=== PATIENT | female | born 1945 | race Caucasian/White ===

== ENCOUNTER 2016-09-16 09:30 | Outpatient (CLI) | payer MEDICARE ==
[2016-09-16 09:57] LABS: Prothrombin Time 23.2 SEC (12.0-14.7)
== END 2016-09-16 09:31 | disposition home or self-care (01) ==
LOC: BURLAB 09:30
PROVIDERS: ATTEND Internal Medicine Cardiovascular Disease
DX: Z51.81 Encounter for therapeutic drug level monitoring (principal); I82.409 Acute embolism and thrombosis of unspecified deep veins of unspecified lower extremity; Z79.01 Long term (current) use of anticoagulants
CPT/HCPCS: 36415; 85610

== ENCOUNTER 2016-10-18 10:01 | Outpatient (CLI) | payer MEDICARE ==
[2016-10-18 10:25] LABS: Prothrombin Time 19.8 SEC (12.0-14.7)
== END 2016-10-18 10:02 | disposition home or self-care (01) ==
LOC: BURLAB 10:01
PROVIDERS: ATTEND Internal Medicine Cardiovascular Disease
DX: I80.209 Phlebitis and thrombophlebitis of unspecified deep vessels of unspecified lower extremity (principal)
CPT/HCPCS: 36415; 85610

== ENCOUNTER 2016-10-26 09:08 | Outpatient (CLI) | payer MEDICARE ==
[2016-10-26 09:28] LABS: Prothrombin Time 28.3 SEC (12.0-14.7)
== END 2016-10-26 09:09 | disposition home or self-care (01) ==
LOC: BURLAB 09:08
PROVIDERS: ATTEND Internal Medicine Cardiovascular Disease
DX: I80.209 Phlebitis and thrombophlebitis of unspecified deep vessels of unspecified lower extremity (principal)
CPT/HCPCS: 36415; 85610

== ENCOUNTER 2016-11-02 12:28 | Outpatient (CLI) | payer MEDICARE ==
[2016-11-02 13:00] LABS: Prothrombin Time 26.8 SEC (12.0-14.7)
== END 2016-11-02 12:29 | disposition home or self-care (01) ==
LOC: BURLAB 12:28
PROVIDERS: ATTEND Internal Medicine Cardiovascular Disease
DX: I80.209 Phlebitis and thrombophlebitis of unspecified deep vessels of unspecified lower extremity (principal)
CPT/HCPCS: 36415; 85610

== ENCOUNTER 2016-11-09 11:07 | Outpatient (CLI) | payer MEDICARE ==
[2016-11-09 11:25] LABS: Prothrombin Time 26.2 SEC (12.0-14.7)
== END 2016-11-09 11:08 | disposition home or self-care (01) ==
LOC: BURLAB 11:07
PROVIDERS: ATTEND Internal Medicine Cardiovascular Disease
DX: I80.209 Phlebitis and thrombophlebitis of unspecified deep vessels of unspecified lower extremity (principal)
CPT/HCPCS: 36415; 85610

== ENCOUNTER 2016-11-16 12:41 | Outpatient (CLI) | payer MEDICARE ==
[2016-11-16 13:09] LABS: Prothrombin Time 25.6 SEC (12.0-14.7)
== END 2016-11-16 12:42 | disposition home or self-care (01) ==
LOC: BURLAB 12:41
PROVIDERS: ATTEND Internal Medicine Cardiovascular Disease
DX: I80.209 Phlebitis and thrombophlebitis of unspecified deep vessels of unspecified lower extremity (principal)
CPT/HCPCS: 36415; 85610

== ENCOUNTER 2016-11-23 09:37 | Outpatient (CLI) | payer MEDICARE ==
[2016-11-23 10:14] LABS: INR-International Normal Ratio 3.3; Prothrombin Time 32.9 SEC (12.0-14.7)
== END 2016-11-23 09:38 | disposition home or self-care (01) ==
LOC: BURLAB 09:37
PROVIDERS: ATTEND Internal Medicine Cardiovascular Disease
DX: I80.209 Phlebitis and thrombophlebitis of unspecified deep vessels of unspecified lower extremity (principal)
CPT/HCPCS: 36415; 85610

== ENCOUNTER 2016-11-29 08:28 | Outpatient (CLI) | payer MEDICARE ==
[2016-11-29 08:48] LABS: INR-International Normal Ratio 1.7; Prothrombin Time 19.8 SEC (12.0-14.7)
== END 2016-11-29 08:29 | disposition home or self-care (01) ==
LOC: BURLAB 08:28
PROVIDERS: ATTEND Internal Medicine Cardiovascular Disease
DX: I80.209 Phlebitis and thrombophlebitis of unspecified deep vessels of unspecified lower extremity (principal)
CPT/HCPCS: 36415; 85610

== ENCOUNTER 2016-12-06 09:12 | Outpatient (CLI) | payer MEDICARE ==
[2016-12-06 09:40] LABS: INR-International Normal Ratio 1.5; Prothrombin Time 18.6 SEC (12.0-14.7)
[2016-12-06 09:58] LABS: Hemoglobin 16.7 g/dL (12.0-16.0); Mean Corpuscular HGB CONC 33.6 g/dL (32.0-36.0); Mean Corpuscular Hemoglobin 31.1 pg (27.0-31.0); Mean Corpuscular Volume 92.6 fl (81.0-99.0); Mean Platelet Volume 10.2 fL (7.4-10.4); Platelet Count 161 thou/uL (130-400); RBC Distribution Width 13.2 % (11.5-14.5); Red Blood Cell (RBC) Count 5.39 mill/uL (4.20-5.40); White Blood Cell (WBC) Count 6.9 thou/uL (4.8-10.8)
[2016-12-06 10:27] LABS: ALT (SGPT) 34 U/L (0-55); AST (SGOT) 27 U/L (5-34); Albumin 3.9 g/dL (3.4-4.8); Alkaline Phosphatase 78 U/L (40-150); Anion Gap 15 mmol/L (10-20); BUN (Urea Nitrogen) 8 mg/dL (9.8-20.1); Bilirubin, Total 1.1 mg/dL (0.2-1.2); Calc. Creatinine Clearance 0 mL/min (70-130); Calcium 9.5 mg/dL (7.8-10.44); Carbon Dioxide 22 mmol/L (23-31); Chloride 109 mmol/L (98-107); Estimated GFR-MDRD 75; Globulin 3.1 g/dL (2.4-3.5); Glucose 96 mg/dL (80-115); Potassium 3.6 mmol/L (3.5-5.1); Sodium 142 mmol/L (136-145)
[2016-12-06 10:43] LABS: Free T4 (Free Thyroxine) 1.36 ng/dL (0.70-1.48); Thyroid Stimulating Hormone 1.1876 uIU/mL (0.35-4.94)
== END 2016-12-06 09:13 | disposition home or self-care (01) ==
LOC: BURLAB 09:12
PROVIDERS: ATTEND Physician Assistant Medical
DX: R19.7 Diarrhea, unspecified (principal); I80.209 Phlebitis and thrombophlebitis of unspecified deep vessels of unspecified lower extremity
CPT/HCPCS: 36415; 80053; 83516; 84439; 84443; 85027; 85610; 85652

== ENCOUNTER 2016-12-13 09:47 | Outpatient (CLI) | payer MEDICARE ==
[2016-12-13 12:09] LABS: INR-International Normal Ratio 2.2; Prothrombin Time 24.4 SEC (12.0-14.7)
== END 2016-12-13 09:48 | disposition home or self-care (01) ==
LOC: BURLAB 09:47
PROVIDERS: ATTEND Internal Medicine Cardiovascular Disease
DX: I80.209 Phlebitis and thrombophlebitis of unspecified deep vessels of unspecified lower extremity (principal)
CPT/HCPCS: 36415; 85610

== ENCOUNTER 2016-12-27 11:48 | Outpatient (CLI) | payer MEDICARE ==
[2016-12-27 12:05] LABS: INR-International Normal Ratio 1.8; Prothrombin Time 21.3 SEC (12.0-14.7)
== END 2016-12-27 11:49 | disposition home or self-care (01) ==
LOC: BURLAB 11:48
PROVIDERS: ATTEND Internal Medicine Cardiovascular Disease
DX: I80.209 Phlebitis and thrombophlebitis of unspecified deep vessels of unspecified lower extremity (principal)
CPT/HCPCS: 36415; 85610

== ENCOUNTER 2017-01-10 08:23 | Outpatient (CLI) | payer MEDICARE ==
[2017-01-10 08:46] LABS: INR-International Normal Ratio 1.9; Prothrombin Time 22.8 SEC (12.0-14.7)
== END 2017-01-10 08:24 | disposition home or self-care (01) ==
LOC: BURLAB 08:23
PROVIDERS: ATTEND Internal Medicine Cardiovascular Disease
DX: I80.209 Phlebitis and thrombophlebitis of unspecified deep vessels of unspecified lower extremity (principal); Z79.01 Long term (current) use of anticoagulants
CPT/HCPCS: 36415; 85610

== ENCOUNTER 2017-01-24 09:14 | Outpatient (CLI) | payer MEDICARE ==
[2017-01-24 09:42] LABS: Anion Gap 11 mmol/L (10-20); BUN (Urea Nitrogen) 14 mg/dL (9.8-20.1); Calc. Creatinine Clearance 0 mL/min (70-130); Calcium 9.4 mg/dL (7.8-10.44); Carbon Dioxide 24 mmol/L (23-31); Chloride 111 mmol/L (98-107); Estimated GFR-MDRD 70; Glucose 100 mg/dL (80-115); Potassium 4.1 mmol/L (3.5-5.1); Sodium 142 mmol/L (136-145)
== END 2017-01-24 09:15 | disposition home or self-care (01) ==
LOC: BURLAB 09:14
PROVIDERS: ATTEND Internal Medicine Cardiovascular Disease
DX: I10 Essential (primary) hypertension (principal)
CPT/HCPCS: 36415; 80048

== ENCOUNTER → 2017-05-06 | Outpatient (CLI) | payer MEDICARE | LOC: BURLAB 09:12 | PROVIDERS: ATTEND Family Medicine | DX: E03.9 Hypothyroidism, unspecified (principal); A09 Infectious gastroenteritis and colitis, unspecified | CPT/HCPCS: 36415; 84443 ==

== ENCOUNTER 2020-09-23 10:43 | Inpatient (IN) | payer MEDICARE ==
[2020-09-23 11:51] LABS: Hemoglobin 14.1 g/dL (12.0-16.0); Mean Corpuscular HGB CONC 33.5 g/dL (32.0-36.0); Mean Corpuscular Hemoglobin 31.2 pg (27.0-31.0); Mean Corpuscular Volume 93.3 fL (78.0-98.0); Mean Platelet Volume 10.1 fL (7.4-10.4); Platelet Count 120 thou/uL (130-400); RBC Distribution Width 12.3 % (11.5-14.5); White Blood Cell (WBC) Count 20.9 thou/uL (4.8-10.8)
[2020-09-23 12:07] LABS: Band 40 % (5-11); Lymphocytes 1 % (21-51); MDiff Complete? YES; Monocytes 3 % (0-10); Neutrophil 56 % (42-75); Vacuoles SLIGHT
[2020-09-23 12:10] LABS: ALT (SGPT) 20 U/L (8-55); AST (SGOT) 28 U/L (5-34); Alkaline Phosphatase 73 U/L (40-110); Anion Gap 16 mmol/L (10-20); BUN (Urea Nitrogen) 47 mg/dL (9.8-20.1); Bilirubin, Total 1.3 mg/dL (0.2-1.2); Calc. Creatinine Clearance 0 mL/min (70-130); Calcium 8.3 mg/dL (7.8-10.44); Carbon Dioxide 23 mmol/L (23-31); Chloride 100 mmol/L (98-107); Globulin 2.8 g/dL (2.4-3.5); Glucose 115 mg/dL (83-110); Potassium 3.2 mmol/L (3.5-5.1); Protein, Total 5.8 g/dL (6.0-8.3); Sodium 136 mmol/L (136-145)
[2020-09-23] MEDS ORDERED: Azithromycin 500 MG VIAL ONE (13:09)
[2020-09-23] MEDS ORDERED: cefTRIAXone\\ROCEPHIN 2 GM VIAL ONE ×2 (13:09→13:13)
[2020-09-23] MEDS ORDERED: Sodium Chloride 0.9% 100 ML ONE (13:09)
[2020-09-23 13:44] LABS: SARS-CoV-2 NAA Rapid Test Not Detected (NotDetected)
[2020-09-23 14:45] LABS: Lactic Acid 2.2 mmol/L (0.5-2.2)
[2020-09-23 16:29] VITALS: BMI 54.8
[2020-09-23] MEDS: Acetaminophen 325 MG TAB PO PRN (16:58)
[2020-09-23] MEDS: Sodium Chloride 0.9% 1,000 ML IV SCH (16:58)
--- NOTE | 2020-09-23 17:18 | RAD ---
PORTABLE CHEST: 09/23/20 Comparison is made with the 10/09/18 study. Hazy infiltrate is seen in the left base, most likely in the lingula. This is a new finding and likel y represents pneumonia. I do not appreciate infiltrates in the right lung at the moment, though subtl e ones might be missed. The lungs are slightly hyperexpanded. The heart is borderline in size but the re are no congestive findings. IMPRESSION: Hazy left basilar infiltrate. Pneumonia is presumed. Findings discussed with Dr. Lindquist at 1251 on 09/23/20. POS: HOME
[2020-09-23] MEDS ORDERED: Ondansetron ODT 4 MG TAB PO PRN (18:17)
[2020-09-23] MEDS ORDERED: Benzonatate 100 MG CAP PO PRN (18:17)
[2020-09-23] MEDS ORDERED: Loperamide HCl 2 MG CAP PO PRN (18:17)
[2020-09-23] MEDS ORDERED: Albuterol 200 PUFF (6.7GM INHALER) INH PRN (18:52)
[2020-09-23] MEDS ORDERED: Potassium Chloride 20 MEQ TAB PO SCH (21:00)
[2020-09-23] MEDS: Famotidine 20 MG TAB PO SCH (21:48)
[2020-09-23] MEDS ORDERED: Rivaroxaban 10 MG TAB PO SCH (22:00)
[2020-09-23] MEDS: Mometasone/Formoterol 60 PUFF AER INH SCH (22:01)
[2020-09-23] MEDS: traMADol HCl 50 MG TAB PO SCH (22:01)
[2020-09-23] MEDS: Nystatin Cream 15 GM TUBE TOP SCH (22:02)
--- NOTE | 2020-09-24 00:29 | HP ---
CHIEF COMPLAINT: Shortness of breath and diarrhea. HISTORY OF THE PRESENT ILLNESS: Mrs. Rodriguez is a 75-year-old female with a past medical history of asthma, hypertension, and PEs/DVTs, who was experiencing approximately 1 week of shortness of breath with a mild cough and diarrhea. She also had significant chills. She denies any fever. She denies any contact with COVID positive individuals. Her cough is minimally productive. She has not had any chest pain. She presented today as she felt she needed to be screened for COVID. Her COVID screen was negative, but she had significant leukocytosis with left shift, lactic acidosis, and acute renal insufficiency. She was given IV fluids in the emergency room and antibiotics and is already feeling much better than from her initial presentation. PAST MEDICAL HISTORY: 1. Obesity. 2. Hypertension. 3. Asthma. 4. Hypothyroidism. 5. PE/DVTs. SURGICAL HISTORY: 1. Hysterectomy. 2. Cholecystectomy. 3. Tubal ligation. 4. Cataracts. FAMILY HISTORY: Noncontributory. SOCIAL HISTORY: The patient denies tobacco. She has an occasional alcoholic beverage but does not drink daily. Denies any illicit drugs. She is and lives with her . Currently, she has children close by as well, staying with her. ALLERGIES: CODEINE CAUSES HIVES, AND LEVAQUIN. MEDICATIONS: 1. Albuterol nebulizer 0.083% nebulized q.4 hours p.r.n. 2. Hydrochlorothiazide 12.5 mg p.o. daily. 3. Tramadol 50 mg p.o. b.i.d. 4. Ventolin HFA two puffs inhaled q.6 hours p.r.n. 5. Tylenol Arthritis two p.o. daily. 6. Lisinopril 80 mg p.o. daily. 7. Levothyroxine 100 mcg p.o. daily. 8. Breo Ellipta one inhalation q.p.m. 9. Xarelto 20 mg p.o. daily. REVIEW OF SYSTEMS: GENERAL: The patient reports chills, malaise, and myalgias. Denies fever. HEENT: Denies vision changes, rhinorrhea, sore throat, ear pain. NECK: Denies pain or lymphadenopathy. CARDIOVASCULAR: Denies chest pain, palpitations, orthopnea, or PND. LYMPHATIC: Denies increased edema. RESPIRATORY: Positive cough, scant sputum. No wheezing or hemoptysis. Positive shortness of breath. GI: Positive diarrhea. No hematochezia or melena. Mild nausea without vomiting. No abdominal pain. HEMATOLOGIC: Denies bleeding. GENITOURINARY: Denies dysuria. PHYSICAL EXAMINATION: VITAL SIGNS: Temperature 98.2, pulse 80, respirations 24, O2 saturation 94% on 2 L. Blood pressure 111/56. GENERAL: Well-developed, overweight, female, alert and oriented x3. Pleasant, in no acute distress. HEENT: Normocephalic, atraumatic. Pupils equally round and reactive to light and accommodation, extraocular muscles intact, nares patent without discharge. Tongue protrudes on the midline. NECK: Supple without lymphadenopathy, JVD, or bruit. HEART: Regular rate and rhythm with 2/6 systolic ejection murmur, best heard in right upper sternal border. LUNGS: Clear to auscultation bilaterally. No crackles or wheezes. ABDOMEN: Positive bowel sounds in all four quadrants. Soft, nontender, and nondistended. No masses, guarding, or rebound tenderness. EXTREMITIES: No cyanosis or clubbing. 1+ nonpitting edema bilaterally to the lower extremities with venous stasis changes to left lower extremity greater than right without warmth. SKIN: Erythema in the labial region per nurse report. NEUROLOGIC: Cranial nerves 2 through 12 grossly intact. No focal deficits. LABORATORY/IMAGING DATA: White count [id number] with 56 polys, 40 bands, 1 lymphocyte, hemoglobin 14.1, hematocrit 42, platelet 120. Sodium 136, potassium 3.2, chloride 100, bicarb 23, BUN 47, creatinine 1.74, glucose 115, lactic acid 2.8, then 2.2, calcium 8.3, T bilirubin 1.3, AST 28, ALT 20, alkaline phosphatase 73, albumin 3. Serology, influenza A, B, and SARS-CoV-2 rapid RNA negative. Urine and blood culture pending. Chest x-ray shows hazy left basilar infiltrate, presumptive pneumonia. ASSESSMENT/PLAN: 1. Left lower lobe pneumonia, community-acquired. The patient was given Rocephin, Zithromax in emergency room. We will continue that. 2. Leukocytosis with bandemia. We will repeat a CBC in the a.m. 3. Lactic acidosis. This has resolved. We will continue IV fluids overnight. 4. Acute kidney injury. The patient has received IV fluids and will continue these overnight. We will recheck a BMP in the morning. 5. Diarrhea. We will give Imodium. We will get stool studies if persists. She is requesting advancing her diet from clear liquids to regular, so we will do that. 6. Hypertension. The patient will be continued on her home medications. 7. History of PE, DVT. Will prescribe home Xarelto. Recommend ambulating as tolerated. 8. Asthma. We will continue home medications. 9. Intertrigo of [place]. We will order nystatin ointment b.i.d. for 14 days and try to keep the area clean and dry. 10. Prophylaxis. The patient is already on oral anticoagulation and will ambulate. Will order famotidine 20 mg b.i.d. for GI prophylaxis. Full code. Job ID: [id number] MTDD
[2020-09-24] MEDS: Loperamide HCl 2 MG CAP PO PRN ×4 (01:33→19:50)
[2020-09-24] MEDS: Sodium Chloride 0.9% 1,000 ML IV SCH ×2 (02:35→11:48)
[2020-09-24 05:27] LABS: #Eosinphils 0.1 thou/uL (0.0-0.7); #Lymphocytes 0.9 thou/uL (1.20-3.40); #Monocytes 0.4 thou/uL (0.11-0.59); #Neutrophils 11.4 thou/uL (1.40-6.50); %Basophils 0.4 % (0.0-1.0); %Eosinophils 0.5 % (0.0-10.0); %Lymphocytes 7.3 % (21.0-51.0); %Monocytes 3.3 % (0.0-10.0); %Neutrophils 88.6 % (42.0-75.0); Hemoglobin 12.2 g/dL (12.0-16.0); Mean Corpuscular HGB CONC 33.7 g/dL (32.0-36.0); Mean Corpuscular Hemoglobin 31.5 pg (27.0-31.0); Mean Corpuscular Volume 93.5 fL (78.0-98.0); Mean Platelet Volume 10.2 fL (7.4-10.4); Platelet Count 106 thou/uL (130-400); RBC Distribution Width 12.5 % (11.5-14.5); Red Blood Cell (RBC) Count 3.87 mill/uL (4.20-5.40); White Blood Cell (WBC) Count 12.9 thou/uL (4.8-10.8)
[2020-09-24] MEDS: Levothyroxine Sodium 100 MCG TAB PO SCH (05:30)
[2020-09-24] MEDS: Acetaminophen 325 MG TAB PO PRN ×2 (05:39→13:13)
[2020-09-24 05:40] LABS: Anion Gap 13 mmol/L (10-20); BUN (Urea Nitrogen) 50 mg/dL (9.8-20.1); Calc. Creatinine Clearance 91 mL/min (70-130); Calcium 7.3 mg/dL (7.8-10.44); Carbon Dioxide 20 mmol/L (23-31); Chloride 107 mmol/L (98-107); Glucose 89 mg/dL (83-110); Potassium 3.1 mmol/L (3.5-5.1); Sodium 137 mmol/L (136-145)
[2020-09-24 06:04] LABS: Platelet Morphology Comment Appears Decreased; RBC Morphology Normal
[2020-09-24] MEDS: Famotidine 20 MG TAB PO SCH ×2 (08:01→19:49)
[2020-09-24] MEDS: Acetaminophen ER (8hr) 650 MG TAB PO SCH (08:01)
[2020-09-24] MEDS: Hydrochlorothiazide 25 MG TAB PO SCH (08:03)
[2020-09-24] MEDS: traMADol HCl 50 MG TAB PO SCH (08:04)
[2020-09-24] MEDS: Nystatin Cream 15 GM TUBE TOP SCH ×2 (08:04→21:22)
[2020-09-24] MEDS: Mometasone/Formoterol 60 PUFF AER INH SCH ×2 (08:05→21:20)
[2020-09-24] MEDS: Lisinopril 20 MG TAB PO SCH (08:13)
[2020-09-24] MEDS ORDERED: Rivaroxaban 10 MG TAB PO SCH ×3 (09:00→21:00)
[2020-09-24] MEDS ORDERED: cefTRIAXone\\ROCEPHIN 2 GM in Sodium Chloride 0.9% 100 ML IVPB SCH (13:00)
[2020-09-24] MEDS ORDERED: traMADol HCl 50 MG TAB PO PRN (13:35)
[2020-09-24] MEDS ORDERED: Azithromycin 500 MG in Sodium Chloride 0.9% 250 ML 250 ML IVPB SCH (14:00)
[2020-09-24] MEDS ORDERED: Potassium Chloride 20 MEQ TAB PO SCH ×2 (14:15→20:15)
--- NOTE | 2020-09-24 14:43 | PDOC.BPN ---
- Brief Progress Note Encounter Date: 09/24/20 Encounter Time: 14:41 Mrs. Rodriguez feels much better today. Her diarrhea episodes have slowed down, and she denies dyspnea. Still fatigued. She is tolerating a regular diet without problems. Denies pain. Selected Entries 09/24/20 12:03 Blood Pressure 84 Mean [Sitting] Respiratory Non-Labored Effort Temperature 98.4 F Pulse Rate 57 L Blood Pressure 124/65 [Sitting] Respiratory 20 Rate O2 Sat by Pulse 100 Oximetry Oxygen Flow 2 Rate Oxygen Delivery Nasal Cannula Method Hospitalist ROS - Review of Systems Constitutional: reports: weakness. denies: fever, chills, sweats, malaise ENT: denies: nose congestion Respiratory: denies: cough, shortness of breath Cardiovascular: denies: chest pain, palpitations Gastrointestinal: reports: diarrhea (chronic since cholecystectomy). denies: nausea, vomiting, abdominal pain, constipation Genitourinary: denies: dysuria, frequency Neurological: denies: confusion - Medication Medications: Active Medications Generic Name Dose Route Start Last Admin Trade Name Freq PRN Reason Stop Dose Admin Acetaminophen 650 mg 09/23/20 15:47 09/24/20 13:13 Acetaminophen 325 Mg Tab PO 650 mg Q4H PRN Administration FEVER/MILD PAIN (1-3) Acetaminophen 650 mg 09/24/20 09:00 09/24/20 08:01 Acetaminophen Er (8hr) 650 Mg Tab PO 650 mg DAILY TITUS Administration Famotidine 20 mg 09/23/20 21:00 09/24/20 08:01 Famotidine 20 Mg Tab PO 20 mg BID TITUS Administration Hydrochlorothiazide 12.5 mg 09/24/20 09:00 09/24/20 08:03 Hydrochlorothiazide 25 Mg Tab PO 12.5 mg DAILY TITUS Administration Ceftriaxone Sodium 2 gm/ 100 mls @ 200 mls/hr 09/24/20 13:00 09/24/20 13:59 Sodium Chloride IVPB 100 mls 1300 TITUS Administration Levothyroxine Sodium 100 mcg 09/24/20 06:00 09/24/20 05:30 Levothyroxine Sodium 100 Mcg Tab PO 100 mcg 0600 TITUS Administration Lisinopril 80 mg 09/24/20 09:00 09/24/20 08:13 Lisinopril 20 Mg Tab PO 80 mg DAILY TITUS Administration Loperamide HCl 4 mg 09/23/20 18:17 09/23/20 21:48 Loperamide Hcl 2 Mg Cap PO 09/24/20 18:18 4 mg ONE PRN Administration Diarrhea/Loose Stools Loperamide HCl 2 mg 09/23/20 18:17 09/24/20 05:30 Loperamide Hcl 2 Mg Cap PO 2 mg PRN PRN Administration Diarrhea/Loose Stools Mometasone Furoate/Formoterol Fumar 2 puff 09/23/20 21:00 09/24/20 08:05 Mometasone/Formoterol 60 Puff Aer INH 2 puff BID TITUS Administration Nystatin 0 gm 09/23/20 21:00 09/24/20 08:04 Nystatin Cream 15 Gm Tube TOP 10/07/20 21:01 1 appful BID TITUS Administration - Exam General Appearance: NAD, awake alert Eye: PERRL, anicteric sclera ENT: normocephalic atraumatic, moist mucosa Neck: supple, symmetric, no JVD, no lymphadenopathy Heart: RRR, no murmur Respiratory: no wheezes, no rales, normal chest expansion, no tachypnea Respiratory - other findings: fine bibasilar crackles Gastrointestinal: soft, non-tender, non-distended, normal bowel sounds Extremities: no cyanosis, no clubbing, 1+ LE edema (non pitting, venous stasis changes) Skin: normal turgor, no rashes Neurological: cranial nerve grossly intact, no focal deficits Musculoskeletal: generalized weakness Psychiatric: normal affect, A&O x 3 Hospitalist Results - Labs Result Diagrams: 09/24/20 05:10 09/24/20 05:10 Lab results: WBC 12.9 thou/uL (4.8-10.8) H 09/24/20 05:10 Hgb 12.2 g/dL (12.0-16.0) 09/24/20 05:10 Hct 36.2 % (36.0-47.0) 09/24/20 05:10 MCV 93.5 fL (78.0-98.0) 09/24/20 05:10 Plt Count 106 thou/uL (130-400) L 09/24/20 05:10 Neutrophils % 88.6 % (42.0-75.0) H 09/24/20 05:10 Band Neuts % (Manual) 40 % (5-11) H 09/23/20 11:45 Sodium 137 mmol/L (136-145) 09/24/20 05:10 Potassium 3.1 mmol/L (3.5-5.1) L 09/24/20 05:10 Chloride 107 mmol/L (98-107) 09/24/20 05:10 Carbon Dioxide 20 mmol/L (23-31) L 09/24/20 05:10 BUN 50 mg/dL (9.8-20.1) H 09/24/20 05:10 Creatinine 1.32 mg/dL (0.6-1.1) H 09/24/20 05:10 Glucose 89 mg/dL (83-110) 09/24/20 05:10 Lactic Acid 2.2 mmol/L (0.5-2.2) 09/23/20 14:30 Calcium 7.3 mg/dL (7.8-10.44) L 09/24/20 05:10 Total Bilirubin 1.3 mg/dL (0.2-1.2) H 09/23/20 11:45 AST 28 U/L (5-34) 09/23/20 11:45 ALT 20 U/L (8-55) 09/23/20 11:45 Alkaline Phosphatase 73 U/L (40-110) 09/23/20 11:45 Serum Total Protein 5.8 g/dL (6.0-8.3) L 09/23/20 11:45 Albumin 3.0 g/dL (3.4-4.8) L 09/23/20 11:45 Hospitalist H&P A/P - Problem (1) Community acquired pneumonia Code(s): J18.9 - PNEUMONIA, UNSPECIFIED ORGANISM Status: Acute Qualifiers: Laterality: left Lung location: lower lobe of lung Qualified Code(s): J18.9 - Pneumonia, unspecified organism Assessment and Plan: Continue IV rocephin and azithromycin. Will need f/u chest x-ray in 4 weeks following discharge to track resolution of infiltrate. Continue ICS. Wean to room air as tolerated. F/u urine and blood cultures to final results, so far negative. (2) Bandemia Code(s): D72.825 - BANDEMIA Status: Acute Assessment and Plan: Improving with antibiotics and hydration. Repeat CBC in a.m. (3) Acute kidney injury Code(s): N17.9 - ACUTE KIDNEY FAILURE, UNSPECIFIED Status: Acute Assessment and Plan: Renal function improving with IVF. Will saline lock and encourage PO hydration. Recheck BMP in the a.m. (4) Lactic acidosis Code(s): E87.2 - ACIDOSIS Status: Resolved Assessment and Plan: Resolved with IVF. (5) Hypokalemia Code(s): E87.6 - HYPOKALEMIA Status: Acute Assessment and Plan: Recieved oral potassium yesterday. Will repeat now and again later tonight. Check magnesium level. Repeat BMP in a.m. (6) Obesity Code(s): E66.9 - OBESITY, UNSPECIFIED Status: Acute Qualifiers: Obesity classification: unspecified obesity classification Serious obesity comorbidity presence: without serious comorbidity Assessment and Plan: Discussed my recommendation for sleep study as an outpatient to rule out HAILEY. (7) Asthma Code(s): J45.909 - UNSPECIFIED ASTHMA, UNCOMPLICATED Status: Acute Qualifiers: Asthma complication type: uncomplicated Assessment and Plan: She will follow up with Dr. Ellis, her banquet line cook, as an outpatient. Continue home medication regimen. (8) History of pulmonary embolism Code(s): Z86.711 - PERSONAL HISTORY OF PULMONARY EMBOLISM Status: Acute Assessment and Plan: Continue Xarelto. Out of bed. PT/OT eval and treat.
[2020-09-24] MEDS ORDERED: traMADol HCl 50 MG TAB PO SCH (21:45)
[2020-09-25] MEDS: Loperamide HCl 2 MG CAP PO PRN ×3 (04:10→13:40)
[2020-09-25] MEDS: Levothyroxine Sodium 100 MCG TAB PO SCH (04:10)
[2020-09-25 05:13] LABS: #Basophils 0.1 thou/uL (0.0-0.2); #Eosinphils 0.2 thou/uL (0.0-0.7); #Lymphocytes 0.8 thou/uL (1.20-3.40); #Monocytes 0.5 thou/uL (0.11-0.59); #Neutrophils 5.4 thou/uL (1.40-6.50); %Basophils 0.9 % (0.0-1.0); %Eosinophils 3.1 % (0.0-10.0); %Lymphocytes 11.8 % (21.0-51.0); %Monocytes 6.6 % (0.0-10.0); %Neutrophils 77.7 % (42.0-75.0); Hemoglobin 12.6 g/dL (12.0-16.0); Mean Corpuscular HGB CONC 34.2 g/dL (32.0-36.0); Mean Corpuscular Hemoglobin 31.7 pg (27.0-31.0); Mean Corpuscular Volume 92.7 fL (78.0-98.0); Mean Platelet Volume 9.6 fL (7.4-10.4); Platelet Count 121 thou/uL (130-400); RBC Distribution Width 12.7 % (11.5-14.5); Red Blood Cell (RBC) Count 3.98 mill/uL (4.20-5.40)
[2020-09-25 05:27] LABS: Anion Gap 12 mmol/L (10-20); BUN (Urea Nitrogen) 37 mg/dL (9.8-20.1); Calc. Creatinine Clearance 134 mL/min (70-130); Carbon Dioxide 21 mmol/L (23-31); Chloride 111 mmol/L (98-107); Glucose 94 mg/dL (83-110); Potassium 3.4 mmol/L (3.5-5.1); Sodium 141 mmol/L (136-145)
[2020-09-25 06:42] VITALS: BP 146/65; TEMP 98.6
[2020-09-25] MEDS: Famotidine 20 MG TAB PO SCH (09:05)
[2020-09-25] MEDS: Acetaminophen ER (8hr) 650 MG TAB PO SCH (09:05)
[2020-09-25] MEDS: Nystatin Cream 15 GM TUBE TOP SCH (09:07)
[2020-09-25] MEDS: Mometasone/Formoterol 60 PUFF AER INH SCH (09:07)
[2020-09-25] MEDS: Hydrochlorothiazide 25 MG TAB PO SCH (09:08)
[2020-09-25] MEDS: Lisinopril 20 MG TAB PO SCH (09:10)
--- NOTE | 2020-09-25 12:54 | PDOC.DS.DS ---
Provider - Provider Date of Admission: 09/23/20 13:10 Date of Discharge: 09/25/20 Admitting Provider: Gilberto Ponce DO Consultations: None Primary Care Physician: Spencer Valle Jr, MD Course - Hospital Course Hospital Course: Mrs. Rodriguez is a 75 y/o female who presented to the ED with diarrhea and malaise x 7 days. She was found to have a leukocytosis with significant bandemia, lactic acidosis, hypokalemia and acute kidney injury. Her CXR showed a left lower lobe infiltrate. She was treated for community acquired pneumonia with IV rocephin and azithromycin. These were converted to oral cefdinir and azithromycin on the date of her discharge due to IV infiltration. At discharge, she will be prescribed an additional 5 days of cefdinir and 2 days of azithromycin to complete a 7 day course of cephalosporin and 5 day course of the macrolide respectively. Her blood and urine cultures are negative to date. She has been afebrile and not required oxygen during her admission. Her chest x-ray needs to be followed up in 4 weeks to document clearance of the infiltrate, and she has stated that she will make an appointment with her brand strategy manager, Dr. Ellis, for this need. In addition, she c/o snoring and was recommended to discuss ordering a sleep study to rule out HAILEY as an outpatient with him, as well. She has been instructed to continue use of incentive spirometry as an outpatient. Her leukocytosis with bandemia, lactic acidosis and acute kidney injury improved with antibiotics and IVF. Her potassium was repleted up to 3.4. Her magnesium level was normal. She likely has hypokalemia chronically due to HCTZ use for BP. She will be discharged on potassium chloride 20 mEq BID. Her BMP can be rechecked at her f/u with PCP in about a week to recheck her potassium and renal function and give direction on further potassium use. Her diarrhea slowed down to her usual amount that she states she has chronically s/p cholecystectomy. In addition, she had a vaginal intertrigo like rash of the labial region and will be given RX for topical mycostatin to be used for approximately 2 weeks. Pertinent Studies: CXR date of admission shows LLL infiltrate. CBC and chemistry results as per her hospital course. Influenza A and B and SARS-COV2 negative on date of admission. Blood cultures x 2 and urine culture are negative to date. Resuscitation Status: 09/23/20 16:19 Resuscitation Status Routine Resuscitation Status: FULL: Full Resuscitation - Labs Lab Results: 09/25/20 05:02 09/25/20 05:02 Abnormal Lab Results - Last 48 hrs 09/24/20 05:10: Potassium 3.1 L, Carbon Dioxide 20 L, BUN 50 H, Creatinine 1.32 H, Calcium 7.3 L 09/24/20 05:10: WBC 12.9 H, RBC 3.87 L, MCH 31.5 H, Plt Count 106 L, Neutrophils % 88.6 H, Lymphocytes % 7.3 L, Neutrophils # 11.4 H, Lymphocytes # 0.9 L, Plt Morphology Comment Appears Decreased L 09/25/20 05:02: Potassium 3.4 L, Chloride 111 H, Carbon Dioxide 21 L, BUN 37 H 09/25/20 05:02: RBC 3.98 L, MCH 31.7 H, Plt Count 121 L, Neutrophils % 77.7 H, Lymphocytes % 11.8 L, Lymphocytes # 0.8 L Microbiology - Entire Visit 09/23/20 15:48 Urine voided Urine Culture - Preliminary NO GROWTH AT 12 HOURS 09/23/20 13:10 Venous blood - Left Arm Blood Culture - Preliminary Specimen has been received and culture in progress. No Growth to date. 09/23/20 12:55 Venous blood - Left Arm Blood Culture - Preliminary Specimen has been received and culture in progress. No Growth to date. - Physical Exam Vitals: Vital Signs (12 hours) Temp Pulse Resp BP BP Pulse Ox 09/25/20 09:10 146/65 H 09/25/20 08:00 96 09/25/20 06:30 98.6 F 72 18 146/65 H 96 Weight Admit Weight 340 lb Weight 340 lb Physical Exam: The patient was seen and examined on the day of discharge. Problem - Problem (1) Community acquired pneumonia Code(s): J18.9 - PNEUMONIA, UNSPECIFIED ORGANISM Status: Acute Qualifiers: Laterality: left Lung location: lower lobe of lung Qualified Code(s): J18.9 - Pneumonia, unspecified organism (2) Bandemia Code(s): D72.825 - BANDEMIA Status: Resolved (3) Acute kidney injury Code(s): N17.9 - ACUTE KIDNEY FAILURE, UNSPECIFIED Status: Resolved (4) Lactic acidosis Code(s): E87.2 - ACIDOSIS Status: Resolved (5) Hypokalemia Code(s): E87.6 - HYPOKALEMIA Status: Acute (6) Obesity Code(s): E66.9 - OBESITY, UNSPECIFIED Status: Chronic Qualifiers: Obesity classification: unspecified obesity classification Serious obesity comorbidity presence: without serious comorbidity (7) Asthma Code(s): J45.909 - UNSPECIFIED ASTHMA, UNCOMPLICATED Status: Chronic Qualifiers: Asthma complication type: uncomplicated (8) History of pulmonary embolism Code(s): Z86.711 - PERSONAL HISTORY OF PULMONARY EMBOLISM Status: Chronic Plan - Discharge Medications Prescriptions: Azithromycin 250 mg PO Q24HR #2 tablet Cefdinir 300 mg PO Q12HR #10 capsule Potassium Chloride [K-Dur] 20 meq PO BID #60 tab Nystatin [Mycostatin Cream] 0 gm TOP BID #1 tube Home Medications: Medication Instructions Recorded Confirmed Type Levothyroxine Sodium 100 mcg PO DAILY 03/28/17 09/23/20 History Lisinopril 80 mg PO DAILY 03/28/17 09/23/20 History Rivaroxaban [Xarelto] 20 mg PO DAILY 03/28/17 09/23/20 History Ventolin HFA Inhaler 2 puff INH Q6HR PRN 03/28/17 09/23/20 History Acetaminophen [Arthritis Pain 2 tab PO DAILY 11/08/18 09/23/20 History Relief] Fluticasone/Vilanterol [Breo 1 inh IH QPM 11/08/18 09/23/20 History Ellipta] Hydrochlorothiazide 12.5 mg PO DAILY 09/23/20 09/23/20 History traMADol HCl [Tramadol HCl] 50 mg PO BID 09/23/20 09/23/20 History Azithromycin 250 mg PO Q24HR #2 tablet 09/25/20 Rx Cefdinir 300 mg PO Q12HR #10 capsule 09/25/20 Rx Nystatin [Mycostatin Cream] 0 gm TOP BID #1 tube 09/25/20 Rx Potassium Chloride [K-Dur] 20 meq PO BID #60 tab 09/25/20 Rx Allergies: codeine Allergy (Verified 11/08/18 15:55) rash, itch levofloxacin [From Levaquin] Allergy (Verified 11/13/18 18:39) - Discharge Instructions Activity:: Activity as Tolerated Nourishment:: Heart Healthy Diet Therapies:: Not Applicable Equipment/Supplies:: Not Applicable IV Therapy:: Not Applicable - Follow up Plan Referrals: Spencer Valle Jr, MD [Primary Care Provider] - 7 Days Rony Ellis MD [MD Not on Staff] - 3-4 Weeks Disposition: HOME Quality - Care Measures CORE MEASURES:: PNE Hospitalist ROS - Review of Systems Constitutional: denies: fever, chills, sweats, weakness, malaise Eyes: denies: vision change ENT: denies: nose congestion Respiratory: denies: cough, shortness of breath Cardiovascular: denies: chest pain, palpitations Gastrointestinal: reports: diarrhea. denies: nausea, vomiting, abdominal pain, constipation Genitourinary: denies: dysuria Skin: denies: rash - Medication Medications: Active Medications Generic Name Dose Route Start Last Admin Trade Name Freq PRN Reason Stop Dose Admin Acetaminophen 650 mg 09/23/20 15:47 09/24/20 13:13 Acetaminophen 325 Mg Tab PO 650 mg Q4H PRN Administration FEVER/MILD PAIN (1-3) Acetaminophen 650 mg 09/24/20 09:00 09/25/20 09:05 Acetaminophen Er (8hr) 650 Mg Tab PO 650 mg DAILY TITUS Administration Famotidine 20 mg 09/23/20 21:00 09/25/20 09:05 Famotidine 20 Mg Tab PO 20 mg BID TITUS Administration Hydrochlorothiazide 12.5 mg 09/24/20 09:00 09/25/20 09:08 Hydrochlorothiazide 25 Mg Tab PO 12.5 mg DAILY TITUS Administration Levothyroxine Sodium 100 mcg 09/24/20 06:00 09/25/20 04:10 Levothyroxine Sodium 100 Mcg Tab PO 100 mcg 0600 TITUS Administration Lisinopril 80 mg 09/24/20 09:00 09/25/20 09:10 Lisinopril 20 Mg Tab PO 80 mg DAILY TITUS Administration Loperamide HCl 2 mg 09/23/20 18:17 09/25/20 09:05 Loperamide Hcl 2 Mg Cap PO 2 mg PRN PRN Administration Diarrhea/Loose Stools Mometasone Furoate/Formoterol Fumar 2 puff 09/23/20 21:00 09/25/20 09:07 Mometasone/Formoterol 60 Puff Aer INH 2 puff BID TITUS Administration Nystatin 0 gm 09/23/20 21:00 09/25/20 09:07 Nystatin Cream 15 Gm Tube TOP 10/07/20 21:01 1 appful BID TITUS Administration Rivaroxaban 20 mg 09/24/20 17:00 09/24/20 16:06 Rivaroxaban 10 Mg Tab PO 20 mg 1700 TITUS Administration Tramadol HCl 50 mg 09/24/20 13:35 09/24/20 19:50 Tramadol Hcl 50 Mg Tab PO 50 mg BIDPRN PRN Administration Pain - Exam General Appearance: NAD, awake alert Eye: PERRL, anicteric sclera ENT: normocephalic atraumatic, moist mucosa Neck: supple, no lymphadenopathy Heart: RRR, no murmur Respiratory: CTAB, no wheezes, no rales, no ronchi Gastrointestinal: soft, non-tender, non-distended, normal bowel sounds Extremities: no cyanosis, no clubbing, 1+ LE edema (chronic non pitting) Extremities - other findings: venous stasis changes to bilateral lower extremities Skin: normal turgor, no rashes Neurological: cranial nerve grossly intact, no weakness, no focal deficits Musculoskeletal: normal tone Psychiatric: normal affect, A&O x 3
[2020-09-25] MEDS ORDERED: Azithromycin 250 MG TAB PO SCH (14:00)
[2020-09-25] MEDS ORDERED: Cefdinir 300 MG CAP PO SCH ×2 (14:15→21:00)
[2020-09-25] MEDS ORDERED: Potassium Chloride 20 MEQ TAB PO SCH (17:00)
== END 2020-09-25 15:40 | disposition home or self-care (01) | DRG 682 ==
LOC: BURERS 10:43 → BURMED 13:10
PROVIDERS: ADMIT Family Medicine; ATTEND Family Medicine
DX: N17.9 Acute kidney failure, unspecified (principal); J18.9 Pneumonia, unspecified organism; Z68.43 Body mass index [BMI] 50.0-59.9, adult; E86.0 Dehydration; E03.9 Hypothyroidism, unspecified; I10 Essential (primary) hypertension; E66.9 Obesity, unspecified; L30.4 Erythema intertrigo; R19.7 Diarrhea, unspecified; E87.6 Hypokalemia; J45.909 Unspecified asthma, uncomplicated; Z88.6 Allergy status to analgesic agent; Z88.1 Allergy status to other antibiotic agents; Z79.890 Hormone replacement therapy; Z79.899 Other long term (current) drug therapy; Z79.51 Long term (current) use of inhaled steroids; Z90.710 Acquired absence of both cervix and uterus; Z90.49 Acquired absence of other specified parts of digestive tract; Z98.51 Tubal ligation status; Z86.711 Personal history of pulmonary embolism; Z86.718 Personal history of other venous thrombosis and embolism; Z79.01 Long term (current) use of anticoagulants; Z98.49 Cataract extraction status, unspecified eye; Z20.822 Contact with and (suspected) exposure to COVID-19
CPT/HCPCS: 0240U; 36415; 71045; 80048; 80053; 83605; 83735; 85025; 87040; 87086; 96365; 96367; J0456; J0696; J3490; J7050

== ENCOUNTER 2020-09-30 06:16 | Emergency (ER) | payer MEDICARE ==
[2020-09-30] MEDS ORDERED: Morphine 4 MG/ML VIAL ONE (06:55)
[2020-09-30] MEDS ORDERED: Ketorolac Tromethamine 30 MG/ML VIAL ONE (06:56)
[2020-09-30] MEDS ORDERED: Ondansetron PF 4 MG/2 ML Vial ONE (06:56)
[2020-09-30 07:00] LABS: #Basophils 0.1 thou/uL (0.0-0.2); #Eosinphils 0.2 thou/uL (0.0-0.7); #Lymphocytes 0.5 thou/uL (1.20-3.40); #Monocytes 0.2 thou/uL (0.11-0.59); #Neutrophils 13.9 thou/uL (1.40-6.50); %Basophils 0.3 % (0.0-1.0); %Eosinophils 1.6 % (0.0-10.0); %Lymphocytes 3.1 % (21.0-51.0); %Monocytes 1.3 % (0.0-10.0); %Neutrophils 93.7 % (42.0-75.0); Hemoglobin 14.4 g/dL (12.0-16.0); Mean Corpuscular HGB CONC 34.6 g/dL (32.0-36.0); Mean Corpuscular Hemoglobin 31.7 pg (27.0-31.0); Mean Corpuscular Volume 91.7 fL (78.0-98.0); Mean Platelet Volume 7.3 fL (7.4-10.4); Platelet Count 206 thou/uL (130-400); RBC Distribution Width 12.3 % (11.5-14.5); Red Blood Cell (RBC) Count 4.56 mill/uL (4.20-5.40); White Blood Cell (WBC) Count 14.8 thou/uL (4.8-10.8)
[2020-09-30 07:15] LABS: ALT (SGPT) 26 U/L (8-55); AST (SGOT) 26 U/L (5-34); Alkaline Phosphatase 99 U/L (40-110); Anion Gap 15 mmol/L (10-20); BUN (Urea Nitrogen) 6 mg/dL (9.8-20.1); Bilirubin, Total 0.8 mg/dL (0.2-1.2); Calc. Creatinine Clearance 0 mL/min (70-130); Calcium 8.4 mg/dL (7.8-10.44); Carbon Dioxide 25 mmol/L (23-31); Chloride 101 mmol/L (98-107); Globulin 2.9 g/dL (2.4-3.5); Glucose 105 mg/dL (83-110); Lipase 10 U/L (8-78); Potassium 3.3 mmol/L (3.5-5.1); Protein, Total 5.9 g/dL (5.8-8.1); Sodium 138 mmol/L (136-145)
[2020-09-30 07:54] LABS: Bilirubin Small (Negative); Blood, Urine Small (Negative); Clarity Clear (Clear); Glucose, Urine (Dipstick) Negative (Negative); Ketone, Urine Trace mg/dL (Negative); Leukocyte Negative (Negative); Nitrite Negative (Negative); Protein, Urine (Dipstick) Negative (Neg-Trace); Urobilinogen 0.2 mg/dL (Less than 2); pH, Urine 5.5 (5.0-9.0)
[2020-09-30 08:01] LABS: Bacteria/HPF Rare-Few HPF (None Seen); RBC/HPF 0-3 HPF (0-3); Squamous Epithelial 0-3 HPF (0-3); WBC/HPF 0-3 HPF (0-3)
== END 2020-09-30 08:44 | disposition home or self-care (01) ==
LOC: BURERS 06:16
DX: M54.5 Low back pain (principal); R19.7 Diarrhea, unspecified; E87.6 Hypokalemia; R60.0 Localized edema; I10 Essential (primary) hypertension; E03.9 Hypothyroidism, unspecified; J45.909 Unspecified asthma, uncomplicated; Z87.01 Personal history of pneumonia (recurrent); Z86.711 Personal history of pulmonary embolism; Z86.718 Personal history of other venous thrombosis and embolism; Z79.899 Other long term (current) drug therapy; Z79.01 Long term (current) use of anticoagulants; Z79.51 Long term (current) use of inhaled steroids
CPT/HCPCS: 51701; 80053; 81003; 81015; 83690; 85025; 96374; 96375; J1885; J2270; J2405

== ENCOUNTER 2020-11-01 14:10 | Emergency (ER) | payer MEDICARE ==
[2020-11-01 14:41] LABS: #Basophils 0.1 thou/uL (0.0-0.2); #Eosinphils 0.6 thou/uL (0.0-0.7); #Lymphocytes 2.1 thou/uL (1.20-3.40); #Monocytes 0.6 thou/uL (0.11-0.59); #Neutrophils 6.6 thou/uL (1.40-6.50); %Basophils 0.9 % (0.0-1.0); %Eosinophils 5.9 % (0.0-10.0); %Lymphocytes 21.1 % (21.0-51.0); %Monocytes 6.1 % (0.0-10.0); %Neutrophils 66.1 % (42.0-75.0); Hemoglobin 15.8 g/dL (12.0-16.0); Mean Corpuscular Hemoglobin 30.1 pg (27.0-31.0); Platelet Count 182 thou/uL (130-400); RBC Distribution Width 13.4 % (11.5-14.5); Red Blood Cell (RBC) Count 5.26 mill/uL (4.20-5.40)
--- NOTE | 2020-11-01 14:43 | RAD ---
EXAM: XR Chest Pa Lat STANDARD PROVIDED CLINICAL HISTORY: Shortness of breath COMPARISON: 09/23/2020 FINDINGS: Cardiac and mediastinal silhouette is unchanged in appearance. Development of moderate right pleural fluid with adjacent passive atelectasis. Left lung appears clear. There is no evidence for pneumothorax. IMPRESSION: Moderate right pleural fluid.
[2020-11-01 14:57] LABS: ALT (SGPT) 45 U/L (8-55); AST (SGOT) 43 U/L (5-34); Albumin 3.6 g/dL (3.4-4.8); Alkaline Phosphatase 128 U/L (40-110); Anion Gap 17 mmol/L (10-20); BUN (Urea Nitrogen) 14 mg/dL (9.8-20.1); Bilirubin, Total 1.3 mg/dL (0.2-1.2); Calc. Creatinine Clearance 0 mL/min (70-130); Calcium 9.3 mg/dL (7.8-10.44); Carbon Dioxide 28 mmol/L (23-31); Chloride 100 mmol/L (98-107); Globulin 3.5 g/dL (2.4-3.5); Glucose 94 mg/dL (83-110); Potassium 3.3 mmol/L (3.5-5.1); Protein, Total 7.1 g/dL (5.8-8.1); Sodium 142 mmol/L (136-145)
[2020-11-01 15:15] LABS: CKMB 1.4 ng/mL (0-6.6)
[2020-11-01] MEDS ORDERED: Nitroglycerin 2% Ointment 1 INCH/1 GM Packet ONE (15:54)
[2020-11-01] MEDS ORDERED: Furosemide 40 MG/4 ML VIAL ONE (15:54)
[2020-11-01] MEDS ORDERED: Furosemide 100 MG/10 ML VIAL ONE (15:54)
[2020-11-01] MEDS ORDERED: Cefepime 2 GM VIAL ONE (16:37)
[2020-11-01] MEDS ORDERED: Sodium Chloride 0.9% 100 ML ONE (16:37)
[2020-11-01] MEDS ORDERED: hydrALAZINE 20 MG/ML VIAL ONE (16:46)
== END 2020-11-01 17:57 | disposition short-term general hospital (02) ==
LOC: BURERS 14:10
DX: J90 Pleural effusion, not elsewhere classified (principal); J45.909 Unspecified asthma, uncomplicated; I10 Essential (primary) hypertension; E03.9 Hypothyroidism, unspecified; Z86.718 Personal history of other venous thrombosis and embolism; Z87.01 Personal history of pneumonia (recurrent); Z79.01 Long term (current) use of anticoagulants; Z79.899 Other long term (current) drug therapy
CPT/HCPCS: 36415; 71046; 80053; 82553; 83605; 83880; 84484; 85025; 87040; 87149; 93005; 94760; 96365; 96375; J0360; J0692; J1940; J3490

== ENCOUNTER 2021-10-24 10:42 | Emergency (ER) | payer MEDICARE ==
[2021-10-24] MEDS ORDERED: Ondansetron PF 4 MG/2 ML Vial ONE (11:22)
[2021-10-24] MEDS ORDERED: Diphenoxylate HCl/Atropine Tablet ONE (11:23)
[2021-10-24 11:26] LABS: #Lymphocytes 1.7 thou/uL (1.20-3.40); #Monocytes 0.7 thou/uL (0.11-0.59); #Neutrophils 4.3 thou/uL (1.40-6.50); %Basophils 0.4 % (0.0-1.0); %Eosinophils 0.5 % (0.0-10.0); %Lymphocytes 24.8 % (21.0-51.0); %Monocytes 10.3 % (0.0-10.0); Hemoglobin 15.7 g/dL (12.0-16.0); Mean Corpuscular HGB CONC 34.9 g/dL (32.0-36.0); Mean Corpuscular Hemoglobin 31.1 pg (27.0-31.0); Mean Corpuscular Volume 89.1 fL (78.0-98.0); Mean Platelet Volume 9.4 fL (7.4-10.4); Platelet Count 182 thou/uL (130-400); RBC Distribution Width 12.5 % (11.5-14.5); Red Blood Cell (RBC) Count 5.05 mill/uL (4.20-5.40); White Blood Cell (WBC) Count 6.7 thou/uL (4.8-10.8)
[2021-10-24 11:39] LABS: ALT (SGPT) 39 U/L (8-55); AST (SGOT) 54 U/L (5-34); Albumin 3.4 g/dL (3.4-4.8); Alkaline Phosphatase 88 U/L (40-110); Anion Gap 15 mmol/L (10-20); BUN (Urea Nitrogen) 23 mg/dL (9.8-20.1); Bilirubin, Total 0.9 mg/dL (0.2-1.2); Calc. Creatinine Clearance 0 mL/min (70-130); Calcium 8.9 mg/dL (7.8-10.44); Carbon Dioxide 24 mmol/L (23-31); Chloride 104 mmol/L (98-107); Globulin 2.2 g/dL (2.4-3.5); Glucose 99 mg/dL (83-110); Lipase 16 U/L (8-78); Potassium 3.7 mmol/L (3.5-5.1); Protein, Total 5.6 g/dL (5.8-8.1); Sodium 139 mmol/L (136-145)
[2021-10-24 12:13] LABS: Bacteria/HPF 1+ HPF (None Seen); Bilirubin Small (Negative); Blood, Urine Negative (Negative); Clarity Cloudy (Clear); Glucose, Urine (Dipstick) Negative (Negative); Ketone, Urine Trace mg/dL (Negative); Leukocyte Negative (Negative); Nitrite Negative (Negative); Oval Fat Bodies/HPF 1+ HPF (None Seen); Protein, Urine (Dipstick) 30 mg/dL (Neg-Trace); RBC/HPF 0-3 HPF (0-3); Specific Gravity, Urine 1.025 (1.005-1.030); Squamous Epithelial 0-3 HPF (0-3); Urobilinogen 0.2 mg/dL (Less than 2)
== END 2021-10-24 14:21 | disposition home or self-care (01) ==
LOC: BURERS 10:42
DX: E86.0 Dehydration (principal); R19.7 Diarrhea, unspecified; J45.909 Unspecified asthma, uncomplicated; I10 Essential (primary) hypertension; E03.9 Hypothyroidism, unspecified; Z86.718 Personal history of other venous thrombosis and embolism; Z86.711 Personal history of pulmonary embolism
CPT/HCPCS: 36415; 71045; 80053; 81003; 81015; 83605; 83690; 85025; 93005; 96374; J2405

== ENCOUNTER 2021-10-28 16:41 | Emergency (ER) | payer MEDICARE ==
[2021-10-28] MEDS ORDERED: Diphenoxylate HCl/Atropine Tablet ONE (17:46)
[2021-10-28 18:08] LABS: #Eosinphils 0.1 thou/uL (0.0-0.7); #Lymphocytes 1.4 thou/uL (1.20-3.40); #Monocytes 0.6 thou/uL (0.11-0.59); #Neutrophils 5.1 thou/uL (1.40-6.50); %Basophils 0.6 % (0.0-1.0); %Lymphocytes 19.6 % (21.0-51.0); %Neutrophils 70.8 % (42.0-75.0); Hemoglobin 15.4 g/dL (12.0-16.0); Mean Corpuscular HGB CONC 34.3 g/dL (32.0-36.0); Mean Corpuscular Hemoglobin 31.4 pg (27.0-31.0); Mean Corpuscular Volume 91.7 fL (78.0-98.0); Mean Platelet Volume 9.9 fL (7.4-10.4); Platelet Count 213 thou/uL (130-400); RBC Distribution Width 12.5 % (11.5-14.5); Red Blood Cell (RBC) Count 4.89 mill/uL (4.20-5.40); White Blood Cell (WBC) Count 7.2 thou/uL (4.8-10.8)
[2021-10-28 18:16] LABS: ALT (SGPT) 39 U/L (8-55); AST (SGOT) 38 U/L (5-34); Alkaline Phosphatase 84 U/L (40-110); Anion Gap 17 mmol/L (10-20); BUN (Urea Nitrogen) 8 mg/dL (9.8-20.1); Bilirubin, Total 1.2 mg/dL (0.2-1.2); Calc. Creatinine Clearance 0 mL/min (70-130); Calcium 8.7 mg/dL (7.8-10.44); Carbon Dioxide 27 mmol/L (23-31); Chloride 102 mmol/L (98-107); Globulin 2.9 g/dL (2.4-3.5); Glucose 102 mg/dL (83-110); Lipase 13 U/L (8-78); Potassium 3.7 mmol/L (3.5-5.1); Protein, Total 5.9 g/dL (5.8-8.1); Sodium 142 mmol/L (136-145)
== END 2021-10-28 19:41 | disposition home or self-care (01) ==
LOC: BURERS 16:41
DX: R53.1 Weakness (principal); R19.7 Diarrhea, unspecified; I44.7 Left bundle-branch block, unspecified; I10 Essential (primary) hypertension; E03.9 Hypothyroidism, unspecified; J45.909 Unspecified asthma, uncomplicated; Z86.718 Personal history of other venous thrombosis and embolism; Z86.711 Personal history of pulmonary embolism
CPT/HCPCS: 80053; 83605; 83690; 85025; 93005